=== PATIENT | male | born 1955 | race Caucasian/White ===

== ENCOUNTER → 2020-12-04 08:15 | Outpatient (CLI) | payer OTHER, SELFPAY ==
[2020-12-04] MEDS: COVID-19 VACC #1, MRNA(MOD) 100 MCG/0.5 ML VIAL IM (08:22)
== END ==
PROVIDERS: Visit Provider Internal Medicine
DX: Z23 Encounter for immunization (principal)
CPT/HCPCS: 0011A; 91301

== ENCOUNTER → 2021-01-01 07:54 | Outpatient (CLI) | payer OTHER, SELFPAY ==
[2021-01-01] MEDS: COVID-19 VACC #2, MRNA(MOD) 100 MCG/0.5 ML VIAL IM (07:55)
== END ==
PROVIDERS: Visit Provider Internal Medicine
DX: Z23 Encounter for immunization (principal)
CPT/HCPCS: 0012A; 91301

== ENCOUNTER → 2021-05-27 11:49 | Outpatient (CLI) | payer OTHER, SELFPAY ==
[2021-05-27 12:45] LABS: Hematocrit 42.8 % (41-53)
[2021-05-27 12:59] LABS: Appearance Urine UA CLEAR; Bilirubin Urine UA NEGATIVE (NEGATIVE); Color Urine UA YELLOW; Glucose Urine UA NEGATIVE (Negative); Ketones Urine UA NEGATIVE (NEGATIVE); Leukocyte Esterase Urine UA NEGATIVE (NEGATIVE); Nitrite Urine UA NEGATIVE (Negative); Occult Blood Urine UA NEGATIVE (Negative); Protein Urine UA NEGATIVE (Negative); Urobilinogen Urine UA 0.2 E.U./dL (0.2); pH Urine UA 6.5 (4.5-8.0)
[2021-05-27 13:06] LABS: Bacteria Urine None Seen; Culture Indicated Urine Cult Not Indicated; RBC Urine None Seen (0-5/HPF); Squamous Epithelial Cell Urine 0-1 /HPF (0-5/HPF); WBC Urine 0-1/HPF (0-5/HPF)
== END ==
PROVIDERS: PCP Family Medicine; Referring Provider Urology; Visit Provider Urology
DX: C61 Malignant neoplasm of prostate (principal)
CPT/HCPCS: 36415; 81001; 85014

== ENCOUNTER → 2021-06-08 13:56 | Outpatient (CLI) | payer OTHER, SELFPAY ==
[2021-06-08 15:36] LABS: COVID-19 CEPHEID PCR (VTM/NP) Negative (Negative)
== END ==
PROVIDERS: PCP Family Medicine; Referring Provider Nurse Practitioner Family; Visit Provider Nurse Practitioner Family
DX: Z20.822 Contact with and (suspected) exposure to COVID-19 (principal)
CPT/HCPCS: U0003

== ENCOUNTER → 2021-09-07 12:48 | Outpatient (CLI) | payer OTHER, SELFPAY ==
[2021-09-08 08:14] LABS: PSA Ultrasensitive <0.006 ng/mL (0.000-4.000)
== END ==
PROVIDERS: PCP Family Medicine; Referring Provider Urology; Visit Provider Urology
DX: C61 Malignant neoplasm of prostate (principal)
CPT/HCPCS: 36415; 84153

== ENCOUNTER → 2022-03-31 12:19 | Outpatient (CLI) | payer MEDICARE, OTHER, SELFPAY ==
[2022-04-01 06:20] LABS: PSA Ultrasensitive <0.006 ng/mL (0.000-4.000)
== END ==
PROVIDERS: PCP Family Medicine; Referring Provider Urology; Visit Provider Urology
DX: C61 Malignant neoplasm of prostate (principal)
CPT/HCPCS: 36415; 84153

== ENCOUNTER → 2022-04-02 09:13 | Outpatient (CLI) | payer MEDICARE, OTHER, SELFPAY ==
[2022-04-02 09:54] LABS: Add Manual Diff / Slide Review NO; Basophils Absolute Auto 100 /uL (0-100); Basophils Percent Auto 0.9 % (0-2); Eosinophils Absolute Auto 300 /uL (0-450); Eosinophils Percent Auto 4.7 % (2-4); Hemoglobin 14.6 g/dL (13.5-17.5); Lymphocytes Absolute Auto 2100 /uL (1100-4500); Lymphocytes Percent Auto 33.1 % (25-40); Mean Corpuscular HGB Conc 35.6 % (30-36); Mean Corpuscular Hemoglobin 31.3 PG (26-34); Mean Corpuscular Volume 88.1 fL (80-100); Monocytes Absolute Auto 600 /uL (0-900); Monocytes Percent Auto 9.1 % (3-14); Neutrophils Absolute Auto 3200 /uL (1500-7000); Neutrophils Percent Auto 52.2 % (50-75); Platelet Count 192 X10^3/uL (150-400); Red Blood Cell Count 4.65 X10^6/uL (4.5-5.9); Red Cell Distribution Width 13.7 % (11.6-14.8); White Blood Cell Count 6.2 X10^3/uL (4.5-11.0)
[2022-04-02 09:56] LABS: Alanine Aminotransferase 27 IU/L (<50); Albumin 4.6 g/dL (3.5-5.0); Alkaline Phosphatase 85 U/L (38-126); Aspartate Aminotransferase 33 IU/L (17-59); Bilirubin Total 1.9 mg/dL (0.2-1.3); Blood Urea Nitrogen 20 mg/dL (9-20); Calcium 9.2 mg/dL (8.4-10.2); Carbon Dioxide 28 mmol/L (22-32); Chloride 101 mmol/L (98-107); Cholesterol 168 mg/dL (140-199); Estimated Glomerular Filt Rate > 60 mL/min (>60); Globulin 2.3 g/dL (1.7-4.1); Glucose 109 mg/dL (80-110); HDL Cholesterol 43 mg/dL (40-60); HEMOLYSIS < 15 (0-50); LDL Cholesterol Calculated 107 mg/dL (<100); Potassium 4.2 mmol/L (3.4-5.1); Sodium 137 mmol/L (137-145); Total Protein 6.9 g/dL (6.3-8.2); Triglycerides 92 mg/dL (35-150)
[2022-04-02 10:33] LABS: Microalbumin Urine Random 0.6 mg/dL (0-1.6)
[2022-04-02 10:43] LABS: Creatinine Urine Random 98.4 mg/dL
== END ==
PROVIDERS: PCP Family Medicine; Referring Provider Family Medicine; Visit Provider Family Medicine
DX: C61 Malignant neoplasm of prostate (principal); I10 Essential (primary) hypertension; E78.2 Mixed hyperlipidemia
CPT/HCPCS: 36415; 80053; 80061; 82043; 82570; 85025

== ENCOUNTER → 2023-01-27 14:44 | Outpatient (CLI) | payer MEDICARE, OTHER, SELFPAY ==
--- NOTE | 2023-01-27 14:47 | DI.NM.S_ITS ---
PROCEDURE: NM EXERCISE TREADMILL NON NUC COMPARISON: None INDICATIONS: Cardiac risk screening FINDINGS: Rest ECG sinus rhythm, RBBB. Yvon protocol 12:20, maximum heart rate 160 bpm (105% peak predicted), maximum blood pressure 190/92, 12.8 METS, WILFRED -54%. Stress ECG sinus tachycardia, no ST segment changes or arrhythmias. The patient did not complain of exercise-induced chest pain. IMPRESSION: Low risk study. No evidence of exercise-induced ischemia or arrhythmia. Normal hemodynamic response. Very good exercise capacity. Dictated by: Aileen Martins D.O. on 01/28/2023 at 14:34 Approved by: Aileen Martins D.O. on 01/28/2023 at 14:36
== END ==
PROVIDERS: PCP Family Medicine; Referring Provider Family Medicine; Visit Provider Family Medicine
DX: I10 Essential (primary) hypertension (principal); Z13.6 Encounter for screening for cardiovascular disorders; E78.2 Mixed hyperlipidemia
CPT/HCPCS: 93017

== ENCOUNTER 2023-03-18 08:49 | Day surgery (SDC) | payer MEDICARE, OTHER, SELFPAY ==
--- NOTE | 2023-03-18 | PATH_ITS ---
[facility] Accession Number: [id number] No. of containers..08 Tissue . 01 Material submitted: . PART A: sigmoid colon - SIGMOID POLYP PART B: cecum - CECAL POLYP PART C: colon - ASCENDIGN POLYP (SCAR) PART D: colon - ASCENDING POLYP 1 PART E: colon - ASCENDING POLYP 2 PART F: colon - TRANSVERSE POLYPS x 4 PART G: sigmoid colon - SIGMOID POLYPS PART H: rectum - RECTAL PLYP . 01 Diagnosis: A. Sigmoid Colon, Polyp: Tubular adenoma. . B. Cecum, Polyp: Prominent lymphoid aggregate. See comment. . C. Ascending Polyp (Scar): Prominent lymphoid aggregate. See comment. . D. Ascending Polyp 1: Tubular adenoma. . E. Ascending Polyp 2: Tubular adenoma. . F. Transverse Polyps x4: Prominent lymphoid aggregates. See comment. . G. Sigmoid Polyps: Hyperplastic polyps. . H. Rectum, Polyp x2: Hyperplastic polyps. [facility] 03/25/2023 1550 Local . 01 Comment: B-C, F: Blocks B, C and F all show expanded lymphoid populations associated with reactive surface epithelial changes. The specimens will be forwarded to our hematopathologist for review, and the findings will be reported as an addendum. . 01 Electronically signed: . Spring Valentine MD, Pathologist NPI- [id number] . 01 Gross description: . Part A: SIGMOID POLYP: Received in formalin is 1 fragment(s) of fletcher, soft tissue measuring 0.3 x 0.2 x 0.1 cm submitted entirely in 1 cassette(s) Part B: CECAL POLYP: Received in formalin is 1 fragment(s) of fletcher, soft tissue measuring 0.3 x 0.2 x 0.2 cm submitted entirely in 1 cassette(s) Part C: ASCENDIGN POLYP (SCAR): Received in formalin is 2 fragment(s) of fletcher, soft tissue measuring 0.4 x 0.2 x 0.2 cm to 0.2 x 0.2 x 0.1 cm submitted entirely in 1 cassette(s) Part D: ASCENDING POLYP 1 : Received in formalin is multiple fragment(s) of fletcher, soft tissue measuring 2.1 x 0.4 x 0.1 cm in aggregate submitted entirely in 1 cassette(s) Part E: ASCENDING POLYP 2 : Received in formalin is multiple fragment(s) of fletcher, soft tissue measuring 2.1 x 0.4 x 0.2 cm in aggregate which is submitted entirely in 1 cassette(s) Part F: TRANSVERSE POLYPS x 4: Received in formalin is multiple fragment(s) of fletcher, soft tissue measuring 0.6 x 0.4 x 0.1 cm in aggregate submitted entirely in 1 cassette(s) Part G: SIGMOID POLYPS: Received in formalin is 3 fragment(s) of fletcher, soft tissue measuring 0.3 x 0.3 x 0.2 cm to 0.2 x 0.2 x 0.1 cm submitted entirely in 1 cassette(s) Part H: RECTAL PLYP: Received in formalin is 2 fragment(s) of fletcher, soft tissue measuring 0.3 x 0.2 x 0.2 cm to 0.2 x 0.1 x 0.1 cm submitted entirely in 1 cassette(s) /[facility] 03/23/2023 1239 Local . 01 Pathologist provided ICD-10: D12.5, D12.2, K62.1 . 01 CPT . 333403, 657857, 963814, 323601, 651090, 069152, [id number], [id number] Specimen Comment: A courtesy copy of this report has been sent to [facility] Performed at: 01 [facility] [address], [place], [place] [id number] MD Clay Barnard MD Phone: [phone]
[2023-03-18] MEDS: LACTATED RINGERS 1,000 ML 42 ML IV (09:03)
[2023-03-18 09:07] VITALS: BP 110/70; PULSE 76; RESP 16; TEMP 36.3; O2SAT 97; BMI 31.7
--- NOTE | 2023-03-18 10:21 | PM.HP.1 ---
History of Present Illness History of Present Illness Date Patient Seen: 03/18/23 Time Patient Seen: 10:21 Chief complaint: Screening Colonoscopy Narrative: 67-year-old male presents today for a screening colonoscopy. He is a retired orthopedic surgeon. His 1st colonoscopy was done at the normal time and he relates that he had lots and lots polyps that affected recommendation for increased interval screening he is had colonoscopy every 3-5 years since then. Had a number of colonoscopies often there are polyps but in the more recent years it seems there are less than less. He knows he has diverticula and on occasion he has episodes of diverticulitis which has been treated with outpatient antibiotics and resolution. He does not take a daily fiber supplement he has no known family history of colon cancer or or family history of polyps. He has no concerning symptoms bleeding changes in bowel habits cramping abdominal pain. He has no further questions or concerns [facility] Medical History (Updated 03/18/23 @ 10:24 by Daphnie Fields MD) Asthma (~1979) Carpal tunnel syndrome (~1999) Cervical spine disease (~1994) Chicken pox (~1959) Cubital tunnel syndrome (~2004) Diverticular disease (~2014) Diverticulitis large intestine Hearing loss (~2019) Herpes (~1976) Hyperlipidemia Hypertension (~1999) Lumbar back pain (~1980) Presbyopia Prostate cancer (~2014) Surgical History (Updated 05/09/21 @ 21:31 by Naa Valera) History of prostate biopsy History of vasectomy (~2004) Family History (Updated 05/09/21 @ 21:37 by Naa Valera) Father Cancer Hyperlipidemia Mother Cancer Sister Diabetes mellitus Social History household members: spouse Smoking Status: Former smoker alcohol intake: current Meds Home Medications and Allergies Home Medications Medication Instructions Recorded Confirmed Type Lactobacillus combo no.23 14 1 cell PO DAILY 05/06/21 03/18/23 History billion cell capsule (Xavier Probiotic) multivitamin 1 tab PO DAILY 05/06/21 03/18/23 History sildenafil 100 mg tablet (Viagra) 100 mg PO DAILY PRN Erectile 05/06/21 03/18/23 History Dysfunction atorvastatin 40 mg tablet 40 mg PO DAILY #90 tabs 03/31/22 03/18/23 Rx losartan 100 1 tab PO DAILY #90 tabs 03/31/22 03/18/23 Rx mg-hydrochlorothiazide 25 mg tablet fluticasone 100 mcg-salmeterol 50 1 inh inhalation DAILY #60 ea 12/24/22 03/18/23 Rx mcg/dose blistr powdr for inhalation (Advair Diskus) Allergies Allergy/AdvReac Type Severity Reaction Status Date / Time No Known Drug Allergies Allergy Verified 05/06/21 13:22 Exam Vital Signs (past 8 hours): - 03/18/23 09:07 Temperature 97.4 F L Pulse Rate 76 Respiratory Rate 16 Blood Pressure 110/70 Pulse Oximetry 97 Oxygen Delivery Method Room Air Oxygen Delivery Method Room Air Const General: cooperative, healthy appearing and comfortable HENMT Head: normal to inspection Eyes General: appearance normal, both eyes and all related structures Neck Neck: normal visual inspection Resp Effort & Inspection: normal respiratory effort and able to speak in complete sentences GI Inspection: normal to inspection Palpation: soft and No tender Extrem General: normal to inspection Assessment & Plan Assessment and plan (1) Screening for colon cancer: Status: Acute (2) History of colon polyps: Status: Acute Assessment & Plan narrative: Presents today for screening colonoscopy I discussed the risks benefits and alternatives including but not limited to perforation of the colon and an incomplete exam he fully understands these risks and would like to proceed.
--- NOTE | 2023-03-18 11:26 | PM.OP.COLON ---
Operative Date/Time/Diagnoses Date of procedure: 03/18/23 Time of procedure: 11:26 Procedure Notes Procedure in detail: Patient was taken to the endoscopy suite and time-out was performed with the help of anesthesiologist conscious sedation was administered and maintained. A digital rectal exam was performed there were no masses or strictures. The colonoscope was introduced into the anus and advanced. There were several large sigmoid diverticula some photographs were obtained 1 approximately 7 or 8 mm polyp was seen entering in the sigmoid this was removed with the biopsy forceps and sent for pathology. Advancing continued then throughout the sigmoid with relative ease and to the cecum. A photograph of the appendiceal orifice was obtained the prep was good was a [place] bowel prep score of 2. The scope was then advanced slowly for total of 35 minutes including all of the biopsies. There was a very small cecal polyp that was removed with the biopsy forceps and sent for pathology. In the ascending colon I observed an area that looked almost like a scar but there may have been a small amount of polyp right in the middle of it this was removed with the biopsy forceps. Also in the ascending colon there were 2 larger polyps the 1st 1 was removed with a biopsy forceps in several pieces the total size of this 1 was under 9 mm. The 2nd polyp encountered in the ascending colon was somewhat larger and probably a mm in size. This 1 was very pedunculated and was taken with a snare. Before and after photographs were obtained from this biopsy. The scope was then further withdrawn through the transverse colon. Within the transverse colon there were 4 very small polyps that were removed with biopsy forceps. As the scope was withdrawn further 2 smaller polyps were seen and removed with biopsy forceps in the sigmoid colon. Finally there were 2 small rectal polyps nearly adjacent to each other which were removed and sent in the same jar for pathology. The scope was then retroflexed and the internal hemorrhoidal piles were observed they were slightly engorged. Otherwise the patient tolerated the procedure well and went in good condition to the postoperative care unit Findings: divertiulosis (Large amounts of diverticula and several photographs obtained centered in the sigmoid colon.), polyp(s) (There were a total of 9 small polyps. One possible polyp/scar and 3 polyps that were larger than 5 mm. One seen entering within the sigmoid and 2 in the ascending colon.) and other findings (Prominent internal hemorrhoid piles) Post-procedure Recommendations: Colonoscopy in 3 years Plan for aftercare: Patient needs to take a fiber supplement daily to assist with prevention of diverticula exacerbations as well as polyp formation. Due to the number of polyps 3 year follow-up for his colonoscopy is advised. Many of those polyps were small and we will follow up on the pathology reports to see how many of those actually turn up as tubular adenomas or other pre cancerous pathology. I believe it is unlikely however that there will be so many that have benign pathology in order to decrease the follow-up interval to 5 years per the standard recommendations. But the final follow-up recommendation will be made when the pathology report is available.
[2023-03-18 11:30] VITALS: BP 94/63; PULSE 67; RESP 19; TEMP 35.7; O2SAT 97
[2023-03-18 11:38] VITALS: BP 109/61; PULSE 62; RESP 16; O2SAT 93
[2023-03-18 11:42] VITALS: BP 100/63; PULSE 60; RESP 14; O2SAT 96
[2023-03-18 11:47] VITALS: BP 104/70; PULSE 67; RESP 20; O2SAT 98
--- NOTE | 2023-05-05 11:00 | PC.NURSE ---
Dr. Fields requesting referral to for Follicular Lymphoma. This RN called pt and he states he does not want the referral yet and will call [facility] if decides to move forward with referral. Message sent to Rajeev Albrecht about this.
== END 2023-03-18 11:55 | disposition home or self-care (01) ==
PROVIDERS: PCP Family Medicine; Referring Provider Surgery; Visit Provider Surgery
PROC: 0DJD8ZZ Inspection of Lower Intestinal Tract, Via Natural or Artificial Opening Endoscopic (ICD-10-PCS; CPT 45378; principal; 2023-03-18 10:00)
DX: D12.7 Benign neoplasm of rectosigmoid junction (principal); D12.2 Benign neoplasm of ascending colon; D12.5 Benign neoplasm of sigmoid colon; Z12.11 Encounter for screening for malignant neoplasm of colon; Z86.010 Personal history of colon polyps; K57.30 Diverticulosis of large intestine without perforation or abscess without bleeding
CPT/HCPCS: 45380; J2250; J2704; J3010

== ENCOUNTER → 2023-08-02 11:52 | Outpatient (CLI) | payer MEDICARE, OTHER, SELFPAY ==
[2023-08-02 13:08] LABS: Add Manual Diff / Slide Review NO; Basophils Absolute Auto 100 /uL (0-100); Basophils Percent Auto 0.7 % (0-2); Eosinophils Absolute Auto 300 /uL (0-450); Eosinophils Percent Auto 4.9 % (2-4); Hemoglobin 15.5 g/dL (13.5-17.5); Lymphocytes Absolute Auto 2000 /uL (1100-4500); Lymphocytes Percent Auto 28.3 % (25-40); Mean Corpuscular HGB Conc 34.5 % (30-36); Mean Corpuscular Hemoglobin 31.2 PG (26-34); Mean Corpuscular Volume 90.5 fL (80-100); Monocytes Absolute Auto 600 /uL (0-900); Monocytes Percent Auto 8.5 % (3-14); Neutrophils Absolute Auto 4000 /uL (1500-7000); Neutrophils Percent Auto 57.6 % (50-75); Platelet Count 230 X10^3/uL (150-400); Red Blood Cell Count 4.98 X10^6/uL (4.5-5.9)
[2023-08-02 20:44] LABS: Alanine Aminotransferase 44 IU/L (<50); Albumin 4.8 g/dL (3.5-5.0); Albumin Globulin Ratio 1.8 (1.0-2.8); Alkaline Phosphatase 96 U/L (38-126); Aspartate Aminotransferase 39 IU/L (17-59); BUN Creatinine Ratio 16.5 (6-22); Bilirubin Total 1.9 mg/dL (0.2-1.3); Blood Urea Nitrogen 13 mg/dL (9-20); Calcium 10.7 mg/dL (8.4-10.2); Carbon Dioxide 27 mmol/L (22-32); Chloride 101 mmol/L (98-107); Cholesterol 159 mg/dL (140-199); Estimated Glomerular Filt Rate > 60 mL/min (>60); Globulin 2.7 g/dL (1.7-4.1); Glucose 122 mg/dL (80-110); HDL Cholesterol 45 mg/dL (40-60); HEMOLYSIS < 15 (0-50); LDL Cholesterol Calculated 88 mg/dL (<100); Potassium 4.5 mmol/L (3.4-5.1); Sodium 139 mmol/L (137-145); Total Protein 7.5 g/dL (6.3-8.2); Triglycerides 130 mg/dL (35-150)
[2023-08-04 14:53] LABS: PSA Ultrasensitive 0.007 ng/mL (0.000-4.000)
== END ==
PROVIDERS: PCP Family Medicine; Referring Provider Family Medicine; Visit Provider Family Medicine
DX: Z00.00 Encounter for general adult medical examination without abnormal findings (principal); K57.90 Diverticulosis of intestine, part unspecified, without perforation or abscess without bleeding; E78.5 Hyperlipidemia, unspecified; C61 Malignant neoplasm of prostate; I10 Essential (primary) hypertension; K57.92 Diverticulitis of intestine, part unspecified, without perforation or abscess without bleeding
CPT/HCPCS: 36415; 80053; 80061; 84153; 85025

== ENCOUNTER → 2023-08-30 10:24 | Outpatient (CLI) | payer MEDICARE, OTHER, SELFPAY ==
[2023-08-30 12:29] LABS: Hemoglobin A1C% w Est Avg Glu 5.5 % (4.0-6.0)
[2023-08-30 12:30] LABS: Alanine Aminotransferase 40 IU/L (<50); Albumin 4.3 g/dL (3.5-5.0); Albumin Globulin Ratio 1.7 (1.0-2.8); Alkaline Phosphatase 79 U/L (38-126); Aspartate Aminotransferase 33 IU/L (17-59); BUN Creatinine Ratio 20.3 (6-22); Bilirubin Total 1.3 mg/dL (0.2-1.3); Blood Urea Nitrogen 14 mg/dL (9-20); Calcium 9.4 mg/dL (8.4-10.2); Carbon Dioxide 25 mmol/L (22-32); Chloride 104 mmol/L (98-107); Estimated Glomerular Filt Rate > 60 mL/min (>60); Globulin 2.5 g/dL (1.7-4.1); Glucose 107 mg/dL (80-110); HEMOLYSIS < 15 (0-50); Potassium 4.4 mmol/L (3.4-5.1); Sodium 137 mmol/L (137-145); Total Protein 6.8 g/dL (6.3-8.2)
[2023-08-31 06:18] LABS: PSA Ultrasensitive <0.006 ng/mL (0.000-4.000)
[2023-08-31 23:38] LABS: Calcium 9.5 mg/dL (8.6-10.2); Parathyroid Hormone, Intact 46 pg/mL (15-65)
== END ==
PROVIDERS: PCP Family Medicine; Referring Provider Family Medicine; Visit Provider Family Medicine
DX: I10 Essential (primary) hypertension (principal); C61 Malignant neoplasm of prostate; E83.52 Hypercalcemia
CPT/HCPCS: 36415; 80053; 82310; 83036; 83970; 84153

== ENCOUNTER → 2024-08-24 08:43 | Outpatient (CLI) | payer MEDICARE, OTHER, SELFPAY ==
[2024-08-24 09:44] LABS: Creatinine Urine Random 245.43 mg/dL
[2024-08-24 09:45] LABS: Add Manual Diff / Slide Review NO; Basophils Absolute Auto 100 /uL (0-100); Basophils Percent Auto 0.9 % (0-2); Eosinophils Absolute Auto 200 /uL (0-450); Eosinophils Percent Auto 3.2 % (2-4); Hematocrit 45.1 % (41-53); Hemoglobin 15.6 g/dL (13.5-17.5); Lymphocytes Absolute Auto 1900 /uL (1100-4500); Lymphocytes Percent Auto 29.6 % (25-40); Mean Corpuscular HGB Conc 34.5 % (30-36); Mean Corpuscular Volume 89.9 fL (80-100); Monocytes Absolute Auto 500 /uL (0-900); Monocytes Percent Auto 8.1 % (3-14); Neutrophils Absolute Auto 3700 /uL (1500-7000); Neutrophils Percent Auto 58.2 % (50-75); Platelet Count 231 X10^3/uL (150-400); Red Blood Cell Count 5.02 X10^6/uL (4.5-5.9); Red Cell Distribution Width 13.7 % (11.6-14.8); White Blood Cell Count 6.3 X10^3/uL (4.5-11.0)
[2024-08-24 09:50] LABS: Microalbumin Urine Random 1.8 mg/dL (0-1.6)
[2024-08-24 10:05] LABS: Alanine Aminotransferase 52 IU/L (<50); Albumin 4.4 g/dL (3.5-5.0); Alkaline Phosphatase 85 U/L (38-126); Aspartate Aminotransferase 39 IU/L (17-59); BUN Creatinine Ratio 15.7 (6-22); Bilirubin Total 1.6 mg/dL (0.2-1.3); Blood Urea Nitrogen 13 mg/dL (9-20); Carbon Dioxide 29 mmol/L (22-32); Chloride 103 mmol/L (98-107); Cholesterol 123 mg/dL (140-199); Estimated Glomerular Filt Rate > 60 mL/min (>60); Globulin 2.2 g/dL (1.7-4.1); Glucose 121 mg/dL (80-110); HDL Cholesterol 46 mg/dL (40-60); HEMOLYSIS < 15 (0-50); LDL Cholesterol Calculated 60 mg/dL (<100); Potassium 4.3 mmol/L (3.4-5.1); Sodium 140 mmol/L (137-145); Total Protein 6.6 g/dL (6.3-8.2); Triglycerides 85 mg/dL (35-150)
[2024-08-24 10:31] LABS: TSH w/ Reflex to FT4 1.68 uIU/mL (0.47-4.68)
[2024-08-25 07:12] LABS: PSA Ultrasensitive <0.006 ng/mL (0.000-4.000)
== END ==
PROVIDERS: PCP Family Medicine; Referring Provider Family Medicine; Visit Provider Family Medicine
DX: K57.90 Diverticulosis of intestine, part unspecified, without perforation or abscess without bleeding (principal); E78.5 Hyperlipidemia, unspecified; C61 Malignant neoplasm of prostate; I10 Essential (primary) hypertension
CPT/HCPCS: 36415; 80053; 80061; 82043; 82570; 84153; 84443; 85025